=== PATIENT | male | born 1960 | race Caucasian/White ===

== ENCOUNTER 2022-02-21 07:42 | Day surgery (SDC) | payer MEDICAID, SELFPAY ==
[~2022-02-21] VITALS: Ht 175.3 cm; Wt 111.1 kg
[2022-02-21] MEDS ORDERED: SIMETHICONE 40 MG/0.6 ML ML ONE (09:43)
[2022-02-21] MEDS: fentaNYL CITRATE/PF 100 MCG/2 ML AMP ONE ×3 (09:57→10:06)
[2022-02-21] MEDS: MIDAZOLAM HCL 5 MG/5 ML VIAL ONE ×3 (09:57→10:03)
[2022-02-21 13:24] VITALS: BP_SYST 100
== END 2022-02-21 10:55 | disposition home or self-care (01) ==
LOC: SDS 07:42 → SMU 07:43 → SDS 10:55
PROVIDERS: ATTEND Internal Medicine
DX: Z12.11 Encounter for screening for malignant neoplasm of colon (principal); K64.8 Other hemorrhoids; Z20.822 Contact with and (suspected) exposure to COVID-19; Z79.899 Other long term (current) drug therapy
CPT/HCPCS: 36415; 45378; 87426; 99152; 99153; G0378; J2250; J3010; U0003